=== PATIENT | male | born 1980 | race Two or more races ===

== ENCOUNTER 2018-04-17 09:15 | Day surgery (SDC) | payer OTHER ==
[~2018-04-17] VITALS: Ht 167.6 cm; Wt 86.2 kg
[2018-04-17] MEDS ORDERED: fentaNYL 0.05 MG/ML VIAL ONE (10:44)
[2018-04-17] MEDS ORDERED: MIDAZOLAM 2 MG/2 ML VIAL ONE ×2 (10:44)
[2018-04-17] MEDS ORDERED: MIDAZOLAM 2 MG/2 ML VIAL IVP ONE (11:05)
== END 2018-04-17 12:02 | disposition home or self-care (01) ==
LOC: MOR 09:15 → MMU 09:28 → MOR 12:02
PROVIDERS: ATTEND Internal Medicine Gastroenterology
DX: K22.10 Ulcer of esophagus without bleeding (principal); E66.9 Obesity, unspecified; Z68.30 Body mass index [BMI] 30.0-30.9, adult; Z87.891 Personal history of nicotine dependence; Z87.442 Personal history of urinary calculi; Z72.89 Other problems related to lifestyle; Z98.890 Other specified postprocedural states
CPT/HCPCS: 36415; 43239; 86677; J2250; J3010